=== PATIENT | male | born 1965 | race African-American/Black ===

== ENCOUNTER 2016-06-08 02:08 | Inpatient (IN) | payer OTHER ==
[~2016-06-08] VITALS: Ht 162.6 cm; Wt 71.9 kg
[2016-06-08] VITALS (16 sets, daily range): BP systolic 132–168; BP diastolic 81–110; PULSE 47–67; TEMP 36.3–37.2; O2SAT 95–100; Ht 162.6 cm; Wt 71.9 kg
[2016-06-08] MEDS ORDERED: NITROGLYCERIN OINT 2% 1GM PACKET EXT ONE (02:30)
--- NOTE | 2016-06-08 02:50 | EMERGENCY ROOM VISIT NOTE ---
History Report prepared by Saritaibant: Jeanine Hernandes Under the Supervision of: Dr. Melida Cook M.D. First contact with patient: 02:10 Chief Complaint: CHEST PAIN Stated Complaint: CHEST PAIN Nursing Triage Summary: Chest pain started at 2100. Came to medical at 0100 and transported here via ems. History of Present Illness The patient is a 50 year old male who presents to the Emergency Room with complaints of mid-chest pain starting about 5 hours ago. He has worsening pain with palpation. He also complains of some shortness of breath. He received aspirin and nitroglycerin with some relief. He denies fevers, chills, cough, nausea, vomiting, abdominal pain, or any other complaints. He does not have any medical problems. He denies any history of blood clots, heart attack, or stress test. He is a current smoker. Source of History: patient Onset: about 5 hours ago Position: chest (mid) Quality: other (palpation) Modifying Factors (Relieving): other (aspirin and nitroglycerin with some relief) Associated Symptoms: + SOB, No abdominal pain, No chills, No cough, No fevers, No nausea, No vomiting Review of Systems See HPI for pertinent positives & negatives. A total of 10 systems reviewed and were otherwise negative. Past Medical & Surgical Medical Problems: (1) No Known Active Medical Problems (2) NSTEMI, initial episode of care Family History Patient reports no known family medical history. Social History Smoking Status: Current Some Day Smoker Marital Status: single Housing Status: other (prisoner) Occupation Status: other (prisoner) Current/Historical Medications No Active Prescriptions or Reported Meds Allergies Coded Allergies: No Known Allergies (Unverified , 06/08/16) Physical Exam Vital Signs Date Time Temp Pulse Resp B/P Pulse Ox O2 Delivery O2 Flow Rate FiO2 06/08/16 02:19 47 06/08/16 02:17 100 Room Air 06/08/16 02:17 36.2 51 18 136/84 100 Room Air Physical Exam Vital signs reviewed. General: Well-appearing, in no significant distress. HEENT: No scleral icterus, PERRLA, neck supple. Atraumatic. Cardiovascular: Regular rate and rhythm, no extra sounds. Pulmonary: Clear to auscultation bilaterally, normal work of breathing. Abdomen: Soft, nontender, nondistended, positive bowel sounds. Musculoskeletal: Atraumatic, no peripheral edema. Neurologic: Patient awake alert and oriented x 3, full strength in all 4 extremities. Cranial nerves 2 through 12 grossly intact. Skin: Warm, dry, no rash Medical Decision & Procedures ER Provider Diagnostic Interpretation: X-ray results as stated below per interpretation by me: CHEST X-RAY Lucency around the right heart border which is thought to be soft tissue overlay right mainstem bronchus and aortic arch. Laboratory Results 06/08/16 02:51 Red Blood Count 4.66, Mean Corpuscular Volume 79.2, Mean Corpuscular Hemoglobin 26.4, Mean Corpuscular Hemoglobin Concent 33.3, Mean Platelet Volume 9.0, Neutrophils (%) (Auto) 77.2, Lymphocytes (%) (Auto) 17.5, Monocytes (%) (Auto) 3.6, Eosinophils (%) (Auto) 1.3, Basophils (%) (Auto) 0.2, Neutrophils # (Auto) 6.79, Lymphocytes # (Auto) 1.54, Monocytes # (Auto) 0.32, Eosinophils # (Auto) 0.11, Basophils # (Auto) 0.02 06/08/16 02:51 Test 06/08/16 02:51 White Blood Count 8.80 K/uL (4.8-10.8) Red Blood Count 4.66 M/uL (4.7-6.1) Hemoglobin 12.3 g/dL (14.0-18.0) Hematocrit 36.9 % (42-52) Mean Corpuscular Volume 79.2 fL (80-100) Mean Corpuscular Hemoglobin 26.4 pg (25-34) Mean Corpuscular Hemoglobin Concent 33.3 g/dl (32-36) Platelet Count 213 K/uL (130-400) Mean Platelet Volume 9.0 fL (7.4-10.4) Neutrophils (%) (Auto) 77.2 % Lymphocytes (%) (Auto) 17.5 % Monocytes (%) (Auto) 3.6 % Eosinophils (%) (Auto) 1.3 % Basophils (%) (Auto) 0.2 % Neutrophils # (Auto) 6.79 K/uL (1.4-6.5) Lymphocytes # (Auto) 1.54 K/uL (1.2-3.4) Monocytes # (Auto) 0.32 K/uL (0.11-0.59) Eosinophils # (Auto) 0.11 K/uL (0-0.5) Basophils # (Auto) 0.02 K/uL (0-0.2) RDW Standard Deviation 45.3 fL (36.4-46.3) RDW Coefficient of Variation 15.7 % (11.5-14.5) Immature Granulocyte % (Auto) 0.2 % Immature Granulocyte # (Auto) 0.02 K/uL (0.00-0.02) Prothrombin Time 10.2 SECONDS (9.0-12.0) Prothromb Time International Ratio 1.0 (0.9-1.1) Activated Partial Thromboplast Time 32.3 SECONDS (21.0-31.0) Partial Thromboplastin Ratio 1.2 Anion Gap 6.0 mmol/L (3-11) Est Creatinine Clear Calc Drug Dose 89.5 ml/min Estimated GFR () 110.7 Estimated GFR (Non- 95.5 BUN/Creatinine Ratio 12.7 (10-20) Calcium Level 8.2 mg/dl (8.5-10.1) Magnesium Level 2.2 mg/dl (1.8-2.4) Iron Level 54 mcg/dl (35-175) Total Iron Binding Capacity 261 mcg/dl (250-450) Total Bilirubin 0.3 mg/dl (0.2-1) Direct Bilirubin < 0.1 mg/dl (0-0.2) Aspartate Amino Transf (AST/SGOT) 35 U/L (15-37) Alanine Aminotransferase (ALT/SGPT) 36 U/L (12-78) Alkaline Phosphatase 108 U/L (45-117) Total Protein 7.0 gm/dl (6.4-8.2) Albumin 3.5 gm/dl (3.4-5.0) Laboratory results per my review. Medications Administered Medications (Trade) Dose Ordered Sig/Kevon Route Start Time Stop Time Status Last Admin Dose Admin Nitroglycerin (Nitroglycerin 2% Oint) 1 inch NOW ONCE EXT 06/08/16 02:30 06/08/16 02:31 DC 06/08/16 02:30 1 INCH Morphine Sulfate (MoRPHine SULFATE INJ) 4 mg NOW STAT IV 06/08/16 03:09 06/08/16 03:11 DC 06/08/16 03:15 4 MG Heparin Sodium/ Dextrose 1 ea NOW STAT N/A 06/08/16 04:02 06/08/16 04:03 DC 06/08/16 04:02 1 EA Heparin Sodium (Porcine) (Heparin Sq 5000 Unit/0.5ml) 5,000 unit STK-MED ONCE .ROUTE 06/08/16 04:31 06/08/16 04:32 DC 06/08/16 04:36 5,000 UNIT Heparin Sodium/ Dextrose (Heparin 25,000 Unit/500ml D5W) 25,000 unit STK-MED ONCE .ROUTE 06/08/16 04:32 06/08/16 04:33 DC 06/08/16 04:35 25,000 UNIT ECG Indication: chest pain Rate (beats per minute): 49 Rhythm: sinus bradycardia Findings: T-wave inversion (inferior and lateral leads) Comparison ECG Date: no prior available Change: Repeat EKG showed sinus bradycardia, 46 beats per minute, t wave inversions in inferior and lateral leads. ED Course 0210: Past medical records reviewed. The patient was evaluated in room B06. A complete history and physical examination was performed. 0230: Nitroglycerin 1 inch EXT 0309: Morphine Sulfate 4 mg IV 0402: Heparin Sodium/Dextrose 1 ea N/A 0450: Upon reevaluation, the patient is resting comfortably. I discussed laboratory and radiographic results with the patient. He verbalized agreement of the treatment plan. I spoke with Dr. Higginbotham of the [facility] Hospitalist Service. The patient will be evaluated for further management and care. Medical Decision DDx: Acute coronary syndrome, pulmonary embolus, aortic dissection, musculoskeletal pain, pneumonia, pleural effusion, pneumothorax This pt was evaluated and appeared to be in no distress. IV access was obtained and lab work was drawn. Pt was placed on the quality assurance monitor body. EKG reveals T wave inferior, anterior and lateral leads. Troponin is elevated at 1.29. CXR is clear. 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 NTG paste was applied, pt was given IV morphine and heparin gtt was started. Repeat EKG reveals ST abnormality with T-wave inversion in the lateral leads, no ST elevation. The hospitalist service was contacted, Dr. Hernandez who evaluated the patient for admission and further management. The patient is aware of the plan and agrees. Consults Time Called: 0639 Consulting Physician: Dr. Higginbotham of the [facility] Hospitalist Service Returned Call: [address] [facility] Impression Primary Impression: Non-STEMI (non-ST elevated myocardial infarction) Critical Care I have personally spent greater than 30 minutes of critical care time in the direct management of this patient. This includes bedside care, interpretation of diagnostic studies, and testing, discussion with consultants, patient, and family members, and other required patient management activities. This 30 minutes is in excess of all separately billable procedures. Scribe Attestation The scribe's documentation has been prepared under my direction and personally reviewed by me in its entirety. I confirm that the note above accurately reflects all work, treatment, procedures, and medical decision making performed by me. Departure Information Dispostion Being Evaluated By Hospitalist Prescriptions No Active Prescriptions or Reported Meds Patient Instructions [facility]
[2016-06-08 02:59] LABS: BASO % 0.2 %; BASO ABS # 0.02 K/uL (0-0.2); COMPLETE YES; EOS % 1.3 %; HEMATOCRIT 36.9 % (42-52); IG% 0.2 %; LYMPH % 17.5 %; LYMPH ABS # 1.54 K/uL (1.2-3.4); MEAN CELL VOLUME 79.2 fL (80-100); MEAN CORPUSCULAR HEMOGLOBIN 26.4 pg (25-34); MEAN CORPUSCULAR HGB CONC 33.3 g/dl (32-36); MONO % 3.6 %; NEUT % 77.2 %; PLATELET COUNT 213 K/uL (130-400); RED BLOOD COUNT 4.66 M/uL (4.7-6.1)
[2016-06-08 03:08] LABS: PARTIAL THROMBOPLASTIN RATIO 1.2; PROTHROMBIN TIME (PATIENT) 10.2 SECONDS (9.0-12.0)
[2016-06-08] MEDS ORDERED: MoRPHine SULFATE 4 MG/ML 1 ML CARP\\VIAL IV STA (03:09)
[2016-06-08 03:22] LABS: ALT/SGPT 36 U/L (12-78); AST/SGOT 35 U/L (15-37); BLOOD UREA NITROGEN 12 mg/dl (7-18); BUN/CREATININE RATIO 12.7 (10-20); CALCIUM 8.2 mg/dl (8.5-10.1); CARBON DIOXIDE 30 mmol/L (21-32); CHLORIDE 108 mmol/L (98-107); CREATININE 0.94 mg/dl (0.60-1.40); GLUCOSE 117 mg/dl (70-99); MAGNESIUM 2.2 mg/dl (1.8-2.4); POTASSIUM 3.4 mmol/L (3.5-5.1); SODIUM 144 mmol/L (136-145)
[2016-06-08 03:30] LABS: ALKALINE PHOSPHATASE 108 U/L (45-117); CKMB/CK RATIO 9.3 (0-3.0)
[2016-06-08] MEDS ORDERED: HEPARIN SOD 5000 UNIT/0.5 ML CARP ONE (04:31)
[2016-06-08] MEDS ORDERED: HEPARIN 25000 UNIT/500 ML D5W ONE (04:32)
[2016-06-08] MEDS ORDERED: ONDANSETRON INJ 2 MG/ML 2 ML VIAL IV PRN ×2 (05:00→12:15)
[2016-06-08] MEDS ORDERED: ZOLPIDEM TARTRATE 5 MG TAB PO PRN (05:00)
[2016-06-08] MEDS ORDERED: HEPARIN 25,000 UNIT/500ML D5W 500 ML IV PRN (05:00)
[2016-06-08] MEDS ORDERED: NITROGLYCERIN 0.4 MG SL PER TAB CHARGE SL PRN ×2 (05:00→12:15)
[2016-06-08] MEDS ORDERED: MoRPHine SULFATE 2 MG/ML CARP IV PRN (05:00)
[2016-06-08] MEDS ORDERED: ACETAMINOPHEN 325 MG TAB PO PRN ×2 (05:00→12:15)
[2016-06-08 05:52] LABS: CKMB/CK RATIO 9.8 (0-3.0)
--- NOTE | 2016-06-08 06:02 | History and Physical ---
History & Physical Date & Time of Service: Jun 08, 2016 at 05:51 Chief Complaint: Nstemi, Initial Episode Of Care Primary Care Physician: Jimy DIMAS History of Present Illness Source: patient The patient is a 42-year-old male resident of [facility] [place], who presents emergency department with chest pain and shortness of breath that began about 5 hours prior to arrival. He did receive 4 baby aspirin and nitroglycerin sublingual with some relief, and then was brought to the emergency department for assessment. He is a current smoker. He is not on any routine medications. Family History Patient reports no known family medical history. Social History Smoking Status: Current Some Day Smoker Smokeless Tobacco Use: No Alcohol Use: none Drug Use: none Marital Status: single Occupational Status: other (prisoner) Multi-Drug Resistant Organisms History of MDRO: No Allergies Coded Allergies: No Known Allergies (Unverified , 06/08/16) Home Medications No Active Prescriptions or Reported Meds Review of Systems The patient denies palpitations, cough, lower extremity swelling, vision change , hearing change, sore throat, fevers, chills, sweats, weight change, fatigue, nausea, vomiting, abdominal pain, pelvic pain, blood in urine or stool, dysuria , urinary frequency or urgency, lightheadedness, dizziness, headache, memory loss, rash, abnormal bruising or bleeding, imbalance, focal or generalized weakness, numbness or tingling in arms or legs, arthralgias or myalgias, back or neck pain, night sweats, or allergy symptoms. The review of systems is otherwise negative other than for that already noted above, and at least 10 systems have been reviewed. Physical Exam Vital Signs Date Time Temp Pulse Resp B/P Pulse Ox O2 Delivery O2 Flow Rate FiO2 06/08/16 05:30 36.2 47 18 136/84 100 06/08/16 02:19 47 06/08/16 02:17 100 Room Air 06/08/16 02:17 36.2 51 18 136/84 100 Room Air The patient is awake, well-developed and adequately nourished, alert and oriented 3, normocephalic and atraumatic, lying in bed and in no acute distress. HEENT--PERRL, EOMI, mucous membranes and oropharynx dry. Neck--supple, no JVD or bruits, thyroid normal, trachea midline, no adenopathy. Heart--normal S1 and S2, no extra beats, no murmurs, rubs or gallops. Lungs--clear bilaterally, no respiratory distress, no accessory muscle use. Abdomen--normal bowel sounds and soft, nontender and nondistended, no hernias or masses, no organomegaly. Extremities--no cyanosis, clubbing or edema. There are good distal pulses b/l. Dermatologic--normal skin turgor, normal color, warm and dry, no abnormal lymph nodes, no rash. Neurologic--cranial nerves II through XII grossly intact, motor and sensory examination normal. Rheumatologic--normal range of motion, nontender, muscles and joints. Psychiatric--normal affect. Diagnostics Laboratory Results Results Past 24 Hours Test 06/08/16 02:51 06/08/16 04:51 06/08/16 05:13 Range/Units White Blood Count 8.80 4.8-10.8 K/uL Red Blood Count 4.66 4.7-6.1 M/uL Hemoglobin 12.3 14.0-18.0 g/dL Hematocrit 36.9 42-52 % Mean Corpuscular Volume 79.2 80-100 fL Mean Corpuscular Hemoglobin 26.4 25-34 pg Mean Corpuscular Hemoglobin Concent 33.3 32-36 g/dl Platelet Count 213 130-400 K/uL Mean Platelet Volume 9.0 7.4-10.4 fL Neutrophils (%) (Auto) 77.2 % Lymphocytes (%) (Auto) 17.5 % Monocytes (%) (Auto) 3.6 % Eosinophils (%) (Auto) 1.3 % Basophils (%) (Auto) 0.2 % Neutrophils # (Auto) 6.79 1.4-6.5 K/uL Lymphocytes # (Auto) 1.54 1.2-3.4 K/uL Monocytes # (Auto) 0.32 0.11-0.59 K/uL Eosinophils # (Auto) 0.11 0-0.5 K/uL Basophils # (Auto) 0.02 0-0.2 K/uL RDW Standard Deviation 45.3 36.4-46.3 fL RDW Coefficient of Variation 15.7 11.5-14.5 % Immature Granulocyte % (Auto) 0.2 % Immature Granulocyte # (Auto) 0.02 0.00-0.02 K/uL Prothrombin Time 10.2 9.0-12.0 SECONDS Prothromb Time International Ratio 1.0 0.9-1.1 Activated Partial Thromboplast Time 32.3 21.0-31.0 SECONDS Partial Thromboplastin Ratio 1.2 Sodium Level 144 136-145 mmol/L Potassium Level 3.4 3.5-5.1 mmol/L Chloride Level 108 98-107 mmol/L Carbon Dioxide Level 30 21-32 mmol/L Anion Gap 6.0 3-11 mmol/L Blood Urea Nitrogen 12 7-18 mg/dl Creatinine 0.94 0.60-1.40 mg/dl Est Creatinine Clear Calc Drug Dose 89.5 ml/min Estimated GFR () 110.7 Estimated GFR (Non- 95.5 BUN/Creatinine Ratio 12.7 10-20 Random Glucose 117 70-99 mg/dl Calcium Level 8.2 8.5-10.1 mg/dl Magnesium Level 2.2 1.8-2.4 mg/dl Total Bilirubin 0.3 0.2-1 mg/dl Direct Bilirubin < 0.1 0-0.2 mg/dl Aspartate Amino Transf (AST/SGOT) 35 15-37 U/L Alanine Aminotransferase (ALT/SGPT) 36 12-78 U/L Alkaline Phosphatase 108 45-117 U/L Total Creatine Kinase 241 39-308 U/L Creatine Kinase MB 22.5 0.5-3.6 ng/ml Creatine Kinase MB Ratio 9.3 0-3.0 Troponin I 1.290 0-0.045 ng/ml Total Protein 7.0 6.4-8.2 gm/dl Albumin 3.5 3.4-5.0 gm/dl Diagnostic Radiology Chest x-ray is normal. EKG EKG #1 shows sinus bradycardia at 49 bpm, with inferior and anterolateral ischemic changes. EKG #2 shows sinus bradycardia at 46 bpm, with inferior and anterolateral ischemic changes. Impression Assessment and Plan NSTEMI, with troponin 1.290, and successive EKGs showing inferior and anterolateral ischemia--the patient will be admitted to the telemetry unit for serial cardiac enzymes, cardiac rhythm monitoring and a 2-D echocardiogram with Dopplers. We'll continue the heparin drip standard dose with bolus per protocol started in the emergency department, and Nitropaste 1 inch to the anterior chest wall every 6 hours, normal saline with KCl 20 mEq at 100 ML's per hour, and aspirin 81 mg by mouth every morning. The patient will be placed on a cardiac diet, will have a cardiology consult, and will likely need a cardiac catheterization. Hyperglycemia--blood sugar 117 upon admission, will check a hemoglobin A1c. Hypokalemia--replaced with IV fluids as noted above. Anemia--hemoglobin is 12.3 upon admission. We'll check iron studies and perform Hemoccults. Level of Care Telemetry Advanced Directives Existing Advance Directive: No Existing Living Will: No Existing Power of Guest Services Attendant: No Resuscitation Status FULL RESUSCITATION VTE Prophylaxis VTE Risk Assessment Done? Y/N: Yes Risk Level: High Given or contraindicated: Unfractionated heparin SQ
[2016-06-08] MEDS: NSS + 20MEQ KCL 1000ML 1,000 ML IV SCH ×2 (06:13→15:32)
[2016-06-08 07:07] LABS: TOTAL IRON BINDING CAPACITY 261 mcg/dl (250-450)
--- NOTE | 2016-06-08 07:40 | DIAGNOSTIC IMAGING REPORT ---
CHEST ONE VIEW PORTABLE CLINICAL HISTORY: chest pain pain COMPARISON STUDY: No previous studies for comparison. FINDINGS: The bones soft tissues and hemidiaphragms are normal. The cardiomediastinal silhouette is normal. The lungs are clear. The pulmonary vasculature is normal. IMPRESSION: Negative chest. Electronically signed by: Abdelrahman Johnson M.D. 06/08/2016 7:38 AM Dictated Date/Time: 06/08/2016 7:35 AM
[2016-06-08 07:48] LABS: ESTIMATED AVERAGE GLUCOSE 123 mg/dl; HA1C FLAG Normal (Normal)
[2016-06-08] MEDS ORDERED: NITROGLYCERIN OINT 2% 1GM PACKET EXT SCH (08:00)
[2016-06-08] MEDS: ASPIRIN 81 MG ECTAB PO SCH (08:13)
[2016-06-08] MEDS ORDERED: ATORVASTATIN 40 MG TAB PO SCH (09:00)
--- NOTE | 2016-06-08 09:06 | ECHOCARDIOGRAM REPORT ---
*NOTICE TO RECEIVING LIBERTARIAN AGENCY This information is strictly Confidential and protected under [place] law. [place] law prohibits you from making any further disclosure of this information unless further disclosure is expressly permitted by the written consent of the person to whom it pertains or is authorized by law. A general authorization for the release of medical or other information is not sufficient for this purpose. Hospital accepts no responsibility if the information is made available to any other person, INCLUDING THE PATIENT. Interpretation Summary * Name: NELIDA CANCHOLA [id number] Study Date: 06/08/2016 07:07 AM BP: 134/83 mmHg * Patient Location: [facility] HR: 47 * : 1965 (M/d/yyyy) Gender: Male Height: 64 in * Age: 50 yrs Ethnicity: AA Weight: 167 lb * Ordering Physician: YESENIA MARADIAGA MD * Performed By: Raina Hsu RCS * * Reason For Study: NSTEMI * BSA: 1.8 m2 * -- Conclusions -- * 1. Normal left ventricular size and systolic function. EF 55-60%. Akinesis of the inferior base. Moderate to severe concentric left ventricular hypertrophy. No significant diastolic dysfunction. * 2. The left atrium is mildly dilated. * 3. No significant valvular abnormalities visualized. * 4. No prior study available for comparison. Procedure Details * A complete two-dimensional transthoracic echocardiogram was performed (2D, M-mode, Doppler and color flow Doppler). Left Ventricle * Normal left ventricular size and systolic function. EF 55-60%. Akinesis of the inferior base. Moderate to severe concentric left ventricular hypertrophy. No significant diastolic dysfunction. Right Ventricle * The right ventricle is normal in size and function. * The right ventricular systolic function is normal as assessed by tricuspid annular plane systolic excursion (TAPSE) (normal >1.5 cm). Atria * The left atrium is mildly dilated. * Right atrial size is normal. * There is no evidence of atrial septal defect, but resolution does not allow assessment for a patent foramen ovale. Mitral Valve * The mitral valve leaflets appear thickened, but open well. * There is no mitral valve stenosis. * There is trace mitral regurgitation. Tricuspid Valve * The tricuspid valve is not well visualized, but is grossly normal. * There is no tricuspid stenosis. * There is trace tricuspid regurgitation. Aortic Valve * The aortic valve is trileaflet. * No hemodynamically significant valvular aortic stenosis. * No aortic regurgitation is present. Pulmonic Valve * The pulmonary valve is inadequately visualized, but the Doppler data is adequate for interpretation. * There is no pulmonic valvular stenosis. * There is no significant pulmonary regurgitation. Great Vessels * The aortic root is normal size. * Ascending aorta of normal dimension Pericardium/Pleural * There is no pericardial effusion. Great Vessels * Normal inferior vena cava size and collapsability with sniff indicates a normal right atrial pressure of 3 mmHg MMode 2D Measurements and Calculations IVSd 1.6 cm IVSs 2.0 cm LVIDd 4.7 cm LVIDs 3.2 cm LVPWd 1.5 cm LVPWs 1.8 cm IVS/LVPW 1.1 FS 32.2 % EDV(Teich) 100.8 ml ESV(Teich) 39.9 ml EF(Teich) 60.4 % EDV(cubed) 101.8 ml ESV(cubed) 31.7 ml EF(cubed) 68.8 % % IVS thick 26.9 % % LVPW thick 24.4 % LV mass(C)d 297.9 grams LV mass(C)dI 164.4 grams/m\S\2 LV mass(C)s 258.8 grams LV mass(C)sI 142.8 grams/m\S\2 SV(Teich) 60.9 ml SI(Teich) 33.6 ml/m\S\2 SV(cubed) 70.1 ml SI(cubed) 38.7 ml/m\S\2 Ao root diam 3.4 cm Ao root area 9.3 cm\S\2 ACS 2.3 cm LA dimension 2.8 cm asc Aorta Diam 3.0 cm LA/Ao 0.80 LVOT diam 2.0 cm LVOT area 3.2 cm\S\2 LVAd ap4 33.3 cm\S\2 LVLd ap4 8.0 cm EDV(MOD-sp4) 111.2 ml EDV(sp4-el) 117.3 ml LVAs ap4 20.8 cm\S\2 LVLs ap4 7.1 cm ESV(MOD-sp4) 54.9 ml ESV(sp4-el) 52.2 ml EF(MOD-sp4) 50.6 % EF(sp4-el) 55.5 % SV(MOD-sp4) 56.2 ml SI(MOD-sp4) 31.0 ml/m\S\2 SV(sp4-el) 65.0 ml SI(sp4-el) 35.9 ml/m\S\2 Doppler Measurements and Calculations MV E max jo 65.0 cm/sec MV A max jo 41.7 cm/sec MV E/A 1.6 MV P1/2t max jo 80.8 cm/sec MV P1/2t 67.6 msec MVA(P1/2t) 3.3 cm\S\2 MV dec slope 349.8 cm/sec\S\2 MV dec time 0.23 sec Ao V2 max 145.3 cm/sec Ao max PG 8.5 mmHg Ao max PG (full) 4.6 mmHg ISAIAH(V,A) 2.1 cm\S\2 ISAIAH(V,D) 2.1 cm\S\2 LV V1 max PG 3.8 mmHg LV V1 max 98.0 cm/sec TV E max jo 57.2 cm/sec
[2016-06-08 09:22] LABS: CHOLESTEROL/HDL RATIO 2.8; THYROID STIMULATING HORMONE 0.971 uIu/ml (0.300-4.500)
[2016-06-08] MEDS ORDERED: NiCARDipine HCL INJ 2.5 MG/ML 10 ML AMP ONE (09:44)
[2016-06-08] MEDS ORDERED: MIDAZOLAM HCL 1 MG/ML 2ML VIAL ONE (09:45)
[2016-06-08] MEDS ORDERED: FENTANYL CITRATE INJ 50 MCG/1 ML 2 ML VIAL ONE (09:45)
[2016-06-08] MEDS ORDERED: HEPARIN SOD (PORCINE) 1000 UNIT/ML 10 ML VIAL ONE (09:45)
--- NOTE | 2016-06-08 09:45 | Procedure Note ---
Pre-Mod Sedation Assessment General Date of Moderate Sedation: Jun 08, 2016. Vital Signs: Vital Signs Past 12 Hours Date Time Temp Pulse Resp B/P Pulse Ox O2 Delivery O2 Flow Rate FiO2 06/08/16 09:23 47 18 134/83 Room Air 06/08/16 08:00 Room Air 06/08/16 07:43 36.5 47 18 134/83 95 Room Air 06/08/16 05:30 36.2 47 18 136/84 100 06/08/16 05:20 36.4 55 18 161/81 95 Room Air 06/08/16 02:19 47 06/08/16 02:17 100 Room Air 06/08/16 02:17 36.2 51 18 136/84 100 Room Air Review Cardiovascular: regular rate, rhythm, no murmur Abdomen: soft Lungs: lungs clear Pre-Sedation Airway Assessment Oral Cavity: WNL Short Thick Neck: No Hx of Sleep Apnea: No Smoking Status: Current Every Day Smoker Procedure Planning Contraindications-for Mod Sed: None Yes Notes The planned sedation has been discussed with the patient and consent obtained. I have identified the patient, determined the appropriateness of sedation and have assessed the patient immediately prior to the procedure. All medicine(s) and interventions are by my order.
[2016-06-08] MEDS ORDERED: NITROGLYCERIN/D5W 100MCG/ML 20ML SYR ONE (09:46)
--- NOTE | 2016-06-08 10:39 | CARDIOLOGY CONSULTATION ---
DATE OF CONSULTATION: 06/08/2016 TIME: 9:59 a.m. CONSULTING PHYSICIAN: Dr. Higginbotham. REASON FOR CONSULTATION: Non-ST elevation myocardial infarction. HISTORY OF PRESENT ILLNESS: Mr. Worthy is a 50-year-old gentleman who resides at [facility] with no known past medical history. He is a long-term tobacco smoker, however. Last evening at approximately 2100, he developed substernal chest discomfort that radiated to his neck and head. It was accompanied by shortness of breath but no diaphoresis. This occurred while sitting in his bunk. He was told to eat crackers and drink some water. This caused nausea but no vomiting. His symptoms persisted. He then came to the Emergency Department for further evaluation. He received nitroglycerin with some improvement of his symptoms, but he has continued to have a very mild chest discomfort, rated 1/10. He states that the chest discomfort is more of a tightness. He has never experienced these symptoms before but did have some shortness of breath a few years ago but none recently. He typically exercises by walking around the yard and has no exertional chest discomfort or shortness of breath with those activities. He denies melena, hematochezia, hematuria, or other bleeding. He does have some intermittent abdominal discomfort but no vomiting. He denies fevers, chills, stroke or stroke-like symptoms, syncope, near syncope, palpitations, orthopnea or PND. REVIEW OF SYSTEMS: As above and otherwise negative. PAST MEDICAL HISTORY: No known past medical history. HOME MEDICATIONS: None. INPATIENT MEDICATIONS: Include heparin drip per protocol, aspirin 81 mg daily, Lipitor 40 mg daily, nitroglycerin 2% ointment 1 inch q. 6 hours, normal saline with potassium chloride 100 mL per hour. ALLERGIES: No known drug allergies. SOCIAL HISTORY: Has smoked up to a pack per day but is now currently smoking less than a pack per day. He denies alcohol or drugs. He did, however, bring up the topic that perhaps something was slipped into his food. He was okay with a tox screen. He is technically but said he will be going through a divorce at some point in the future. When asked how many children he has, he says "quite a few." He is accompanied by network security engineer from [facility]. FAMILY HISTORY: No known premature CAD. PHYSICAL EXAMINATION: VITAL SIGNS: Temperature 36.5 degrees, heart rate 47 beats per minute, respiration rate 18, blood pressure 134/83 mmHg, oxygen saturation 95% on room air, weight 77.2 kg. GENERAL: No acute distress. He is alert and oriented x3. HEENT: Anicteric sclerae. NECK: No appreciable JVD. No bruits. Normal carotid upstrokes bilaterally. There does appear to be a possible lymphadenopathy on the left side of his neck versus thyroid finding. CARDIAC: No ventricular heave. Regular, normal S1, S2. No murmurs, rubs or gallops were auscultated. PMI was nondisplaced. LUNGS: Faint rales in bibasilar areas, otherwise clear. ABDOMEN: Soft, nondistended, mild tenderness in the epigastric area. No bruits. No palpable masses. Normoactive bowel sounds. EXTREMITIES: No cyanosis or edema. No palpable cords. 2+ radial pulses bilaterally. Maverick's test okay. 2+ femoral pulses bilaterally. No bruits. PSYCHIATRIC: Affect appears appropriate. ECG personally reviewed. ECG 06/08/2016 at 2:10 a.m., sinus bradycardia at [address]-T wave abnormality in the inferior and anterolateral leads. Repeat ECG performed at 3:38 a.m. without significant change. Possible inferior infarct. Echocardiogram performed earlier today personally reviewed. Normal LV size and systolic function. EF 55-60%. Inferior base appeared akinetic. Moderate to severe LVH. Mild left atrial dilation. No significant valvular abnormalities. LABORATORY DATA: White blood cell count is 8.8, hemoglobin 12.3, platelets 213. Sodium 144, potassium 3.8, BUN 12, creatinine 0.94, magnesium 2.2. Troponin 1.29 initially and increased to 2.43. CK-MB 36.1. Triglycerides 72, total cholesterol 166, LDL 93, HDL 59. TSH 0.971. INR 1, PTT 32.3. Chest x-ray image personally reviewed. No infiltrate. Radiology has interpreted the chest x-ray as "negative chest." ASSESSMENT AND PLAN: 1. Acute non-ST elevation myocardial infarction: He continues to have very mild chest discomfort despite nitroglycerin ointment and receiving nitroglycerin sublingual tablets. Recommend a cardiac catheterization. Risks and benefits were discussed with him. He is made aware that CT surgery is not available at this facility. He has given informed written consent to undergo diagnostic angiography and percutaneous coronary intervention, if deemed appropriate, at [facility]. Continue antiplatelet therapy and high intensity statin therapy for presumed coronary artery disease. He is not on beta devika therapy due to resting bradycardia. 2. Tobacco abuse: Recommended that he stop smoking. 3. Tox screen: He asked if something could have been slipped into his food. We discussed tox screen and he was agreeable to undergo tox screen which will be ordered at this time. He denies personal use of cocaine or other illicit substance at this time, however. 4. Disposition: Cardiac catheterization will be performed urgently given his ongoing symptoms, albeit much improved. 5. Highly complex medical issues. Thank you for allowing me to participate in the care of Mr. Worthy.
--- NOTE | 2016-06-08 11:16 | Progress Note ---
Progress Note Date of Service Jun 08, 2016. (Coco Rose ., PA-C) Progress Note Patient seen and examined by me. Still c/o central chest pressure which he rates a 1/10. Also c/o some epigastric pain that has been intermittent. The patient denies fevers, chills, sweats, palpitations, claudication, cough, wheezing, shortness of breath, nausea, vomiting, dysuria, hematuria, urinary retention, paralysis, weakness, numbness and tingling. On physical exam, patient in sinus bradycardia. Epigastric area and upper quadrants of abdomen mildly TTP. Physical exam otherwise unremarkable. Patient has remained in sinus bradycardia overnight with HR in 40s. Patient did have 2 short runs of v-tach (4 beats) overnight. Troponin continues to rise : 1.29 -->2.43. Lipid panel and HgbA1c WNL. Slightly hypokalemic on arrival at 3.4, continue IVF NSS + 20 mEq KCl at 100 cc/hr Echocardiogram results: * -- Conclusions -- * 1. Normal left ventricular size and systolic function. EF 55-60%. Akinesis of the inferior base. Moderate to severe concentric left ventricular hypertrophy. No significant diastolic dysfunction. * 2. The left atrium is mildly dilated. * 3. No significant valvular abnormalities visualized. * 4. No prior study available for comparison. Seen by Dr. Garcia, patient taken for urgent cardiac cath. Continue antiplatelet therapy and statin. Patient is bradycardic. No beta devika therapy. Continue aspirin, nitroglycerin and heparin drip. Awaiting cath results. (Coco Rose ., PA-C) I agree with PA assessment and plan Pt to undergo cardiac cath Tops trending upwards Ischemic changes on EKG Mild chest pain this AM Hemodynamically stable Appreciate cardiology recs (Ashok Cantrell D.O.)
--- NOTE | 2016-06-08 11:25 | Procedure Note ---
Post-Mod Sedation Assessment General Date of Moderate Sedation Jun 08, 2016. Vital Signs: Vital Signs Past 12 Hours Date Time Temp Pulse Resp B/P Pulse Ox O2 Delivery O2 Flow Rate FiO2 06/08/16 09:23 47 18 134/83 Room Air 06/08/16 08:00 Room Air 06/08/16 07:43 36.5 47 18 134/83 95 Room Air 06/08/16 05:30 36.2 47 18 136/84 100 06/08/16 05:20 36.4 55 18 161/81 95 Room Air 06/08/16 02:19 47 06/08/16 02:17 100 Room Air 06/08/16 02:17 36.2 51 18 136/84 100 Room Air Review - Discharge Criteria Vital Signs Stable: Yes Alert/Oriented/Conversant: Yes Returned to Baseline Mental St: Yes Nausea Absent/Minimal: Yes Pain/Discomfort/Absent/Minimal: Yes Normal/Baseline Respirations: Yes Active Bleeding?: No
[2016-06-08] MEDS ORDERED: EPTIFIBATIDE 2 MG/ML 10 ML VIAL IV ONE (11:38)
[2016-06-08] MEDS ORDERED: EPTIFIBATIDE 0.75 MG/ML 75MG VIAL IV ONE (11:38)
--- NOTE | 2016-06-08 11:57 | Cardiac Catheterization ---
Procedure Note Procedure Date Jun 08, 2016. Pre-Procedure Diagnosis Non STEMI (with ongoing angina despite nitrate therapy) AUC Score 8 Post-Procedure Diagnosis Severe CAD Procedure(s) Performed Coronary Angiography, Left Heart Cath Manager Commercial Dr. Garcia Stocking Inspector(s) Marysol Estimated Blood Loss < 25 ml Medication(s) Fentanyl, Heparin, Nicardipine, Versed, Lidocaine 1% Summary of Findings Coronary angiography: 1. Left main coronary artery: The LMCA is large in caliber without angiographic evidence of CAD. 2. Left anterior descending: The LAD is very large in caliber and wraps around the apex. Proximal LAD 30-40%, just proximal to large septal auto parts handler. Luminal irregularities in the mid LAD. There is a small caliber D1 and medium caliber D2 without angiographic evidence of CAD. 3. Circumflex: The circumflex is a large caliber vessel. It gives rise to a high OM1. Proximal circumflex 30%. Mid circumflex lawn diffusely diseased segment ranging 50-70% with sequential 70% lesions within this segment. SHAYNA 3 flow. Very large caliber OM1 with proximal 70% followed by sequential 50% stenosis. 4. Ramus intermedius: Large caliber ramus intermedius with proximal 30% stenosis. 5. 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 Dominant RCA. Proximal RCA 30%. Mid to distal RCA 100% occlusion. SHAYNA 0 flow. Left heart catheterization: 1. Left ventriculography was not performed due to echocardiogram performed earlier today. 2. No aortic stenosis. Peak to peak gradient across the aortic valve was 0 mmHg. 3. Mildly elevated LVEDP; 17 mmHg. Aortography: 1. Supravalvular aortography was performed to help locate the right coronary artery origin. There was no aortic regurgitation. No aortic aneurysm. No evidence of ascending aortic dissection. Sedation start time 10:13 a.m. Sedation end time 11:08 a.m. Procedural details: 1. Coronary angiography was performed via the right radial artery without known complication. 2. AR2 6 Persian diagnostic catheter was used to sub selectively engage anomalous right coronary artery. Impression: 1. 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 2. Severe CAD involving the circumflex and very large caliber OM1. Otherwise nonobstructive CAD within the LAD and ramus intermedius. 3. No aortic stenosis or aortic regurgitation. 4. Mildly elevated LVEDP. Plan: 1. Interventional Cardiology, Dr. Gutierres, to attempt PCI of occluded RCA as patient has continued to experience angina, despite nitrate therapy. Hemodynamics Rest Ao: 127/72 Final Ao: 129/82 LV: 133/7/17 Recommendations PCI without planned CABG Specimens None Radiation Exposure (mGy) 1885 mGy. Fluoro time 14.3 min. Contrast (mls) 157 ml visipaque Procedural Complication(s) None Disposition remained in director of cath lab for attempted PCI ACC Data Cardiac Status Clinical evaluation leading to the procedure CAD Presntation: Non STEMI Anginal Classification: CCS IV Heart Failure: No Cardiogenic Shock w/in 24Hrs: No Cardiac Arrest w/in 24Hrs: No Imaging studies past 6 months: Yes (echo) Stress studies past 6 months: No Standard Exercise Stress Test: No Stress Echocardiogram: No Stress Testing w/SPECT MPI: No Cardiac CTA: No Coronary Anatomy Dominant: Right Left Main (% Stenosis): Normal LAD (% Stenosis): Proximal (30%) D1 (% Stenosis): Normal Circumflex (% Stenosis): Proximal (30%), Mid (sequential 70% lesions) OM1 (% Stenosis): Proximal (sequential 70% and 50% stenotic lesions.) RCA (% Stenosis): Proximal (30%), Mid (mid to distal 100%) Ramus (% Stenosis): Proximal (30%) Left Ventricular Angiography EF (%): n/a Aortography Aortic Regurgitation: None Diagnostic Physician's Name: Wander Garcia MD Status: Elective Closure Device Percutaneous Entry Location: Radial Closure Device: Radial Band Recommendations: PCI without planned CABG PCI Indication: Angina despite med therapy
[2016-06-08] MEDS ORDERED: EPTIFIBATIDE BOLUS / DRIP IV ONE (12:15)
[2016-06-08] MEDS ORDERED: ATROPINE SULFATE 0.1 MG/ML 5ML SYR IV PRN (12:15)
[2016-06-08] MEDS ORDERED: CLOPIDOGREL BISULFATE 300 MG TAB PO ONE (12:16)
--- NOTE | 2016-06-08 13:09 | Cardiac Catheterization ---
Procedure Note Procedure Date Jun 08, 2016. Pre-Procedure Diagnosis Non STEMI, Acute Coronary Syndrome AUC Score 9 Post-Procedure Diagnosis Severe CAD, Successful PCI Procedure(s) Performed Coronary Angiography, PTCA, Drug Eluting Stent Qlikview Developer Dr. Gutierres Hvac Mechanical Engineer(s) JAIR Wills Estimated Blood Loss 20 ml for PCI procedure Medication(s) Clopidogrel (600 mg PO post PCI), Heparin, Integrilin, Nicardipine ( Intraarterial and intracoronary), Versed, Lidocaine 1% Summary of Findings Cath site: 6 Fr [facility] right radial artery Equipment: 6 Fr ALR1-2 guide catheter, [place] guidewire, [employer] Sprinter 2 X 15 mm balloon , Ferguson Xience 2.25 X 18 mm MARLYN. PCI protocol: IV heparin and Integrilin to achieve therapeutic ACT. One inflation with Sprinter to distal RCA occlusion to 14 atms for 15 seconds. Stent deployed at 18 atms for 45 sec. Follow up angiography from orthogonal projections with guidewire in place and then withdrawn. Complications: none. Findings: Initial diagnostic RCA angiography revealed total distal occlusion at crux. SHAYNA 0 flow. After guide angiography flow into the distal RCA was extended for an additional few cm. After PTCA to distal RCA SHAYNA 2 flow into PDA. After stent deployment the residual stenosis at the stent site was 0%. Step up and step down prior to and distal to stent respectively. No dissection, thrombus,perforation, or distal embolic event. SHAYNA 3 flow into remainder of the codominant RCA and a small caliber PDA. After the stent there was a residual 30% stenosis. Distal RCA gave rise to a small caliber PDA with minor irregularities Plan: Aspirin,clopidogrel for at least one year. Aspirin indefinitely. Statin, RODRIGUEZ inhibitor. Beta devika currently contraindicated secondary to intrinsic bradycardia. IV Integrilin for 18 hrs. Smoking cessation counseling. Hemodynamics Rest Ao: 129/82/101 mm Hg. Final Ao: 152/92/82 mm Hg. LV: NA Recommendations Medical therapy and/or Counseling, PCI without planned CABG Specimens None Radiation Exposure (mGy) [place] 3662 for both diagnostic and PCI procedures. Contrast (mls) Total of 297 ml Visipaque for both procedures. Fluids (cc crystalloids) Total of 200 ml for both procedures. Drains none. Anesthesia None addtional for PCI. Procedural Complication(s) None Disposition PCU ACC Data Cardiac Status Clinical evaluation leading to the procedure CAD Presntation: Non STEMI Anginal Classification: CCS IV Heart Failure: No Cardiogenic Shock w/in 24Hrs: No Cardiac Arrest w/in 24Hrs: No Stress studies past 6 months: Yes Standard Exercise Stress Test: No Stress Echocardiogram: No Stress Testing w/SPECT MPI: No Cardiac CTA: No Coronary Anatomy Dominant: Co-dominant (See Dr. Garcia's diagnostic report for complete details.) RCA (% Stenosis): Distal (100) Left Ventricular Angiography EF (%): NA Diagnostic Physician's Name: Wander Garcia MD Status: Urgent Closure Device Percutaneous Entry Location: Radial Closure Device: Radial Band Recommendations: None PCI Indication: PCI for high risk Non-STEMI Lesion Segment Name: Distal RCA Culprit Artery: Yes Stenosis Prior to Rx (%): 100 Chronic Total Occlusion: No IVUS: No FFR: No Pre-Procedure SHAYNA Flow: 0 Previously Treated Lesion: No Lesion Complexity: Non-High/Non-C Lesion Length (mm): 15 Thrombus Present: Yes Bifurcation Lesion: No Guidewire Across Lesion: Yes Guidewire: Stenosis Post-Procedure (%): 0 Post-Procedure SHAYNA Flow: 3 Device(s) Deployed: Yes Type of Device(s): Ferguson Xience 2.25 X 18 mm MARLYN. Intraprocedure Events Significant Dissection: No Perforation: No
[2016-06-08 15:27] LABS: CKMB/CK RATIO 11.3 (0-3.0)
[2016-06-08] MEDS: EPTIFIBATIDE INJ 75 MG PREMIXED IV SCH (17:51)
[2016-06-08] MEDS ORDERED: EPTIFIBATIDE INJ 75 MG PREMIXED IV SCH (19:00)
[2016-06-08 22:02] LABS: BENZODIAZEPINE, URINE POS (NEG); COCAINE,URINE NEG (NEG); PHENCYCLIDINE, URINE NEG (NEG)
[2016-06-08 22:27] LABS: CKMB/CK RATIO 8.1 (0-3.0)
[2016-06-09] MEDS: NSS + 20MEQ KCL 1000ML 1,000 ML IV SCH ×3 (01:38→11:43)
[2016-06-09] MEDS: EPTIFIBATIDE INJ 75 MG PREMIXED IV SCH (01:38)
[2016-06-09 04:43] VITALS: BP_SYST 177; BP_SYST 182; BP_DIAS 106; BP_DIAS 107; PULSE 64; TEMP 37.1; O2SAT 95
[2016-06-09] MEDS ORDERED: Integrelin infusion --> STOP ORDER ONE (05:00)
[2016-06-09 06:03] LABS: HEMATOCRIT 31.8 % (42-52); MEAN CELL VOLUME 78.5 fL (80-100); MEAN CORPUSCULAR HEMOGLOBIN 25.9 pg (25-34); MEAN PLATELET VOLUME 9.3 fL (7.4-10.4); PLATELET COUNT 194 K/uL (130-400); RED BLOOD COUNT 4.05 M/uL (4.7-6.1); WHITE BLOOD COUNT 6.94 K/uL (4.8-10.8)
[2016-06-09 06:13] LABS: INR 0.9 (0.9-1.1); PARTIAL THROMBOPLASTIN RATIO 1.2; PROTHROMBIN TIME (PATIENT) 10.1 SECONDS (9.0-12.0)
[2016-06-09 06:32] LABS: BASO % 0.3 %; BASO ABS # 0.02 K/uL (0-0.2); COMPLETE YES; EOS % 3.6 %; IG% 0.1 %; LYMPH % 40.1 %; LYMPH ABS # 2.78 K/uL (1.2-3.4); MONO % 8.2 %; NEUT % 47.7 %
[2016-06-09 06:38] LABS: BUN/CREATININE RATIO 14.4 (10-20); CALCIUM 7.9 mg/dl (8.5-10.1); CREATININE 0.82 mg/dl (0.60-1.40); MAGNESIUM 2.1 mg/dl (1.8-2.4); POTASSIUM 3.4 mmol/L (3.5-5.1)
[2016-06-09] MEDS ORDERED: POTASSIUM CHLORIDE 20 MEQ TABCR PO ONE (07:15)
[2016-06-09 07:31] VITALS: BP 176/109; PULSE 64; TEMP 36.6; O2SAT 93
[2016-06-09] MEDS: ASPIRIN 81 MG ECTAB PO SCH (08:30)
[2016-06-09] MEDS: ATORVASTATIN 40 MG TAB PO SCH (08:30)
[2016-06-09] MEDS: CLOPIDOGREL BISULFATE 75 MG TAB PO SCH (08:30)
[2016-06-09] MEDS ORDERED: HydrALAZINE HCL 20 MG/ML VIAL IV. PRN (08:45)
[2016-06-09] MEDS ORDERED: ASPIRIN 81 MG ECTAB PO SCH (09:00)
[2016-06-09] MEDS ORDERED: LISINOPRIL 5 MG TAB PO SCH (09:00)
--- NOTE | 2016-06-09 09:41 | Hospitalist Progress Note ---
Hospitalist Progress Note Date of Service Jun 09, 2016. (Coco Rose ., PA-C) Subjective Pt evaluation today including: conversation w/ patient, physical exam, chart review, lab review, review of studies, review of inpatient medication list Pain: None PO Intake: Tolerating PO diet Voiding: no voiding problems Patient reports feeling well. He denies any chest pain, tightness or pressure. His shortness of breath and abdominal pain have also resolved. He does complain of a tingling sensation in his legs bilaterally around his knees only. He also complains of swelling in his right arm following the cardiac cath. The patient is eating and urinating without difficult post operatively and is passing gas. He denies any bowel movements. The patient denies fevers, chills , sweats, chest pain, palpitations, claudication, cough, wheezing, shortness of breath, nausea, vomiting, abdominal pain, dysuria, hematuria, urinary retention , paralysis, and weakness. Additional Comments: See HPI for pertinent positives and negatives. All other systems reviewed and negative. (Coco Rose ., PA-C) Objective Vital Signs Date Time Temp Pulse Resp B/P Pulse Ox O2 Delivery O2 Flow Rate FiO2 06/09/16 07:31 36.6 64 18 176/109 93 Room Air 06/09/16 04:43 37.1 64 18 177/107 95 Room Air 182/106 06/09/16 04:00 Room Air 06/08/16 23:59 Room Air 06/08/16 23:39 37.2 65 18 168/99 96 Room Air 06/08/16 20:00 Room Air 06/08/16 19:52 36.9 60 20 162/93 97 06/08/16 17:30 67 18 132/89 96 Room Air 06/08/16 16:30 52 18 165/110 96 Room Air 06/08/16 16:00 Room Air 06/08/16 15:30 36.3 52 18 162/106 96 Room Air 06/08/16 14:30 53 18 148/91 95 Room Air 06/08/16 14:00 58 16 143/93 98 Room Air 06/08/16 13:31 56 18 145/95 96 Room Air 06/08/16 13:12 53 18 135/86 95 Room Air 06/08/16 13:00 Room Air 06/08/16 12:59 60 16 135/86 98 Room Air 06/08/16 12:45 51 18 133/88 98 Room Air 06/08/16 12:30 50 18 152/88 98 Room Air 06/08/16 12:15 52 18 155/94 96 Room Air 06/08/16 12:00 51 18 150/81 95 Room Air 06/08/16 09:23 47 18 134/83 Room Air (Coco Rose ., PA-C) Physical Exam General Appearance: WD/WN, no apparent distress, + obese Eyes: normal inspection, PERRL, EOMI ENT: normal ENT inspection, hearing grossly normal, pharynx normal Neck: supple, no JVD, trachea midline Respiratory/Chest: lungs clear, normal breath sounds, no respiratory distress Cardiovascular: regular rate, rhythm, no gallop, no murmur Abdomen: normal bowel sounds, non tender, soft Extremities: non-tender, normal inspection, + swelling (non-pitting edema RUE) , + pertinent finding (R radial cath site c/d/i) Neurologic/Psychiatric: alert, normal mood/affect, oriented x 3 Skin: normal color, warm/dry, no rash (Coco Rose ., PA-C) Laboratory Results Last 24 Hours Test 06/08/16 10:26 06/08/16 11:12 06/08/16 11:23 06/08/16 14:21 Kaolin Activated Coagulation Time 173 SECONDS 198 SECONDS 281 SECONDS Total Creatine Kinase 873 U/L Creatine Kinase MB 99.0 ng/ml Creatine Kinase MB Ratio 11.3 Troponin I 24.200 ng/ml Test 06/08/16 19:25 06/08/16 20:58 06/09/16 05:38 06/09/16 05:58 Urine Opiates Screen POS Urine Methadone, Qualitative NEG Urine Barbiturates NEG Urine Phencyclidine (PCP) Level NEG Ur Amphetamine/Methamphetamine NEG MDMA (Ecstasy) Screen NEG Urine Benzodiazepines Screen POS Urine Cocaine Metabolite NEG Urine Marijuana (THC) NEG Total Creatine Kinase 1053 U/L Creatine Kinase MB 85.5 ng/ml Creatine Kinase MB Ratio 8.1 Troponin I 26.900 ng/ml 18.100 ng/ml White Blood Count 6.94 K/uL Red Blood Count 4.05 M/uL Hemoglobin 10.5 g/dL Hematocrit 31.8 % Mean Corpuscular Volume 78.5 fL Mean Corpuscular Hemoglobin 25.9 pg Mean Corpuscular Hemoglobin Concent 33.0 g/dl Platelet Count 194 K/uL Mean Platelet Volume 9.3 fL Neutrophils (%) (Auto) 47.7 % Lymphocytes (%) (Auto) 40.1 % Monocytes (%) (Auto) 8.2 % Eosinophils (%) (Auto) 3.6 % Basophils (%) (Auto) 0.3 % Neutrophils # (Auto) 3.31 K/uL Lymphocytes # (Auto) 2.78 K/uL Monocytes # (Auto) 0.57 K/uL Eosinophils # (Auto) 0.25 K/uL Basophils # (Auto) 0.02 K/uL RDW Standard Deviation 45.0 fL RDW Coefficient of Variation 15.6 % Immature Granulocyte % (Auto) 0.1 % Immature Granulocyte # (Auto) 0.01 K/uL Red Blood Cell Morphology Unremarkable Prothrombin Time 10.1 SECONDS Prothromb Time International Ratio 0.9 Activated Partial Thromboplast Time 31.9 SECONDS Partial Thromboplastin Ratio 1.2 Sodium Level 144 mmol/L Potassium Level 3.4 mmol/L Chloride Level 111 mmol/L Carbon Dioxide Level 26 mmol/L Anion Gap 7.0 mmol/L Blood Urea Nitrogen 12 mg/dl Creatinine 0.82 mg/dl Est Creatinine Clear Calc Drug Dose 113.8 ml/min Estimated GFR () 121.2 Estimated GFR (Non- 104.6 BUN/Creatinine Ratio 14.4 Random Glucose 90 mg/dl Calcium Level 7.9 mg/dl Magnesium Level 2.1 mg/dl Ferritin 44.0 ng/ml Test 06/09/16 09:00 (Coco Rose, DORENE-C) Diagnostic Results Cardiac cath: Coronary angiography: 1. Left main coronary artery: The LMCA is large in caliber without angiographic evidence of CAD. 2. Left anterior descending: The LAD is very large in caliber and wraps around the apex. Proximal LAD 30-40%, just proximal to large septal distribution tech. Luminal irregularities in the mid LAD. There is a small caliber D1 and medium caliber D2 without angiographic evidence of CAD. 3. Circumflex: The circumflex is a large caliber vessel. It gives rise to a high OM1. Proximal circumflex 30%. Mid circumflex lawn diffusely diseased segment ranging 50-70% with sequential 70% lesions within this segment. SHAYNA 3 flow. Very large caliber OM1 with proximal 70% followed by sequential 50% stenosis. 4. Ramus intermedius: Large caliber ramus intermedius with proximal 30% stenosis. 5. 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 Dominant RCA. Proximal RCA 30%. Mid to distal RCA 100% occlusion. SHAYNA 0 flow. Left heart catheterization: 1. Left ventriculography was not performed due to echocardiogram performed earlier today. 2. No aortic stenosis. Peak to peak gradient across the aortic valve was 0 mmHg. 3. Mildly elevated LVEDP; 17 mmHg. Aortography: 1. Supravalvular aortography was performed to help locate the right coronary artery origin. There was no aortic regurgitation. No aortic aneurysm. No evidence of ascending aortic dissection. Sedation start time 10:13 a.m. Sedation end time 11:08 a.m. Procedural details: 1. Coronary angiography was performed via the right radial artery without known complication. 2. AR2 6 [place] diagnostic catheter was used to sub selectively engage anomalous right coronary artery. Impression: 1. 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 2. Severe CAD involving the circumflex and very large caliber OM1. Otherwise nonobstructive CAD within the LAD and ramus intermedius. 3. No aortic stenosis or aortic regurgitation. 4. Mildly elevated LVEDP. Plan: 1. Interventional Cardiology, Dr. Gutierres, to attempt PCI of occluded RCA as patient has continued to experience angina, despite nitrate therapy. PCI: [facility] Equipment: 6 Fr ALR1-2 guide catheter, [place] guidewire, Medtronic Sprinter 2 X 15 mm balloon , Ferguson Xience 2.25 X 18 mm MARLYN. PCI protocol: IV heparin and Integrilin to achieve therapeutic ACT. One inflation with Sprinter to distal RCA occlusion to 14 atms for 15 seconds. Stent deployed at 18 atms for 45 sec. Follow up angiography from orthogonal projections with guidewire in place and then withdrawn. Complications: none. Findings: Initial diagnostic RCA angiography revealed total distal occlusion at crux. SHAYNA 0 flow. After guide angiography flow into the distal RCA was extended for an additional few cm. After PTCA to distal RCA SHAYNA 2 flow into PDA. After stent deployment the residual stenosis at the stent site was 0%. Step up and step down prior to and distal to stent respectively. No dissection, thrombus,perforation, or distal embolic event. SHAYNA 3 flow into remainder of the codominant RCA and a small caliber PDA. After the stent there was a residual 30% stenosis. Distal RCA gave rise to a small caliber PDA with minor irregularities Plan: Aspirin,clopidogrel for at least one year. Aspirin indefinitely. Statin, RODRIGUEZ inhibitor. Beta devika currently contraindicated secondary to intrinsic bradycardia. IV Integrilin for 18 hrs. Smoking cessation counseling. (Coco Rose ., NICOLE) Assessment and Plan 50 y/o male inmate at [facility] with no significant past medical history who presented to the ED with chest pain and SOB 5 hours prior to arrival. Pt received 4 baby aspirin and SL nitro in the [facility] with some relief. Pt denies any family history of cardiovascular disease and denies any personal history of HTN, HLD, or cardiovascular events. Pt is a smoker, although he has been cutting back. Initial troponin elevated at 1.290. EKGs show inferior and anterolateral T wave inversions. NSTEMI--stable. S/p MARLYN POD #1 -Admitted to telemetry. No acute events overnight, pt in sinus rhythm with HR in 60s-70s, with PACs and PVCs -Troponin continued to trend upward prior to cath: 1.290 --> 2.43 -Lipid panel WNL. HgbA1c WNL -Cardiology on board. Spoke with Dr. Garcia. If vital signs stable, ok to d /c tomorrow. Start carvedilol 3.125 mg PO BID now that HR has improved, also given HTN. Can titrate as needed. F/u as an outpatient. -Echocardiogram significant for akinesis of inferior base -Pt taken for urgent cardiac cath on 06/[address] Garcia as pt still symptomatic despite nitro -Cardiac cath revealed 100% occlusion of mid to distal RCA. Mid circumflex with 50-70% stenosis. -Successful PCI with Dr. Gutierres, drug eluding stent placed in RCA -Continue ASA and Plavix s/p stent -Continue lisinopril 5 mg PO qd, atorvastatin 80 mg PO qd -Troponin now trending downward, 18.1 on 06/09 -EKG on 06/09 shows 57 bpm, sinus bradycardia. Inferior T wave inversions persist. Elevated BP w/o previous diagnosis of HTN--SBP persists in 170s-180s -Cover with hydralazine 10 mg IV q6h prn SBP >180 -Lisinopril as above Hypokalemia--stable -Potassium 3.4 on arrival -NSS + 20 mEq KCl at 100 cc/hr -Potassium on 06/09 stable at 3.4 -KCl 40 mEq PO x 1 -Check renin and aldosterone Anemia--ongoing. Unknown baseline -Hgb 12.3 on arrival -Iron, TIBC WNL -Ferritin WNL -Fecal occult blood uncollected -Hgb on 06/09 10.5 -Continue to monitor DVT prophylaxis -Enoxaparin 40 mg SC q24h Code Status -Level I, FULL RESUSCITATION STATUS (Coco Rose ., PAEliezerC) Attending Attestation: Pt seen/examined, chart reviewed, care plan d/w DORENE Rose. I agree w/ the contreras components of her documentation. Pt w/o cp, sob, gillespie, nausea, emesis. Reports 1 episode of melena stool 1-2 months ago; had a normal colonoscopy to his recollection in [place] in the past. Tele stable. VSS gen - nad heart - RRR, s1, s2 lungs - CTA b/l abd - soft, NT ext - no edema; right wrist clean, no erythema or hematoma A/P: NSTEMI 2nd to RCA occlusion s/p deployment of MARLYN plavix x 1 year BB, statin, aspirin borderline low Fe Def - start supplementation; needs outpatient GI referral HTN - increase RODRIGUEZ; add nitropaste if needed tonight vitor SALINAS MD (Dayron Salinas MD)
[2016-06-09 11:48] VITALS: BP 179/91; PULSE 92; TEMP 36.5; O2SAT 96
[2016-06-09] MEDS ORDERED: PANTOprazole SOD 40 MG TAB PO ONE (14:30)
[2016-06-09] MEDS ORDERED: CARVEDILOL 3.125 MG TAB PO ONE (14:30)
--- NOTE | 2016-06-09 14:35 | CARDIOLOGY PROGRESS NOTE ---
DATE: 06/09/2016 TIME: 14:03 p.m. SUBJECTIVE: Yesterday, he underwent coronary angiography and was found to have an anomalous right coronary artery with occlusion in the mid to distal segment. He underwent drug-eluting stent placement with a 2.25 x 18-mm Xience drug-eluting stent. His pain resolved following PCI. He has not had any further chest pain. Denies shortness of breath, syncope, near syncope, palpitations or bleeding. Telemetry personally reviewed. His heart rate is no longer bradycardic and actually has been in the normal range and intermittently tachycardic. He had a 4-beat run of ventricular tachycardia. His blood pressure has also become more elevated. OBJECTIVE: VITAL SIGNS: Temperature 36.5 degrees, most recent charted heart rate 92 beats per minute, respiratory rate 18, blood pressure 179/91 mmHg, and oxygen saturation 96% on room air. I's and O's positive 2 liters yesterday. GENERAL: No acute distress. He is alert. NECK: No appreciable JVD. CARDIAC EXAM: No ventricular heave. Regular, normal S1 and S2. No audible murmurs, rubs or gallops. LUNGS: Clear to auscultation bilaterally without wheezes, rales or rhonchi. ABDOMEN: Soft, nontender, and nondistended. Normoactive bowel sounds. EXTREMITIES: Right radial catheterization site is clean, dry and intact without erythema or discharge. 2+ right radial pulse. No cyanosis or pitting edema. PSYCHIATRIC: Affect appears appropriate. MEDICATIONS: Include aspirin 81 mg daily, Plavix 75 mg daily, Lipitor 80 mg daily, hydralazine p.r.n., lisinopril 5 mg daily, Protonix 40 mg daily, and potassium chloride with normal saline. LABORATORY DATA: White blood cell count is 6.9, hemoglobin 10.5, and platelets 194. Sodium 144, potassium 3.4, BUN 12, creatinine 0.82, and magnesium 2.1. Peak troponin was 26.9. Triglycerides 72, total cholesterol 166, LDL 93, and HDL 59. TSH 0.971. ECG this morning, sinus bradycardia at 57 beats per minute. T-wave inversion in the inferior leads. The anterolateral leads have T-wave abnormality, improved compared to prior ECG yesterday when anterolateral T-wave inversions are much more pronounced. Cardiac catheterization performed yesterday on 06/08/2016 demonstrated proximal LAD 30%-40%. Proximal circumflex 30%. Mid circumflex 50%-70% diffusely diseased with sequential 70% lesions within that segment. SHYANA-3 flow. Proximal very large caliber OM1 with proximal 70% followed by 50% stenosis. Anomalous RCA, which appears to originate from the noncoronary cusp. Proximal RCA 30% and mid to distal RCA 100% with SHAYNA 0 flow. ASSESSMENT AND PLAN: 1. Acute RCA non-ST elevation myocardial infarction: His angina completely resolved following PCI. Due to PCI with drug-eluting stent, recommend aspirin 81 mg daily indefinitely. Plavix 75 mg daily for at least 1 year. Continue high intensity statin therapy. We will initiate beta devika. He has residual circumflex and OM1 significant CAD. Would medically manage this and if he develops symptoms, consider PCI. 2. Hypertension: His blood pressure has been elevated today. Carvedilol 3.125 mg twice daily will be initiated. Lisinopril was also initiated. Titrate these medications as appropriate. 3. Dyslipidemia: Now that he has coronary artery disease, recommend high intensity statin therapy. 4. Tobacco abuse: Recommended today once again that he stop smoking. 5. Bradycardia: His bradycardia has resolved following PCI of RCA. 6. Disposition: As long as he has no recurrent angina and his vital signs are acceptable, can be discharged back to [facility] tomorrow. Recommend cardiology followup. Ideally, cardiac rehabilitation also recommended if allowed by the skilled nursing system. I will be away from the hospital tomorrow. Please do not hesitate to call the on-call museum or zoo director for [facility] for any questions or concerns. Plan of care has been discussed with Coco Rose of the primary service.
[2016-06-09] MEDS: ENOXAPARIN 40 MG/0.4 ML SYR SQ SCH (14:41)
[2016-06-09 16:00] VITALS: BP_SYST 175; BP_SYST 180; BP_DIAS 100; BP_DIAS 102; PULSE 69; TEMP 36.8; O2SAT 95
[2016-06-09] MEDS ORDERED: LISINOPRIL 5 MG TAB PO ONE (16:30)
[2016-06-09] MEDS: FERROUS SULFATE 325 MG TAB PO SCH (16:50)
[2016-06-09 19:49] VITALS: BP 165/97; PULSE 69; TEMP 36.9; O2SAT 97
[2016-06-09] MEDS: CARVEDILOL 3.125 MG TAB PO SCH (20:12)
[2016-06-09] MEDS: NITROGLYCERIN OINT 2% 1GM PACKET EXT SCH (20:39)
[2016-06-09 23:35] VITALS: BP 168/100; PULSE 64; TEMP 37; O2SAT 98
[2016-06-10 03:45] VITALS: BP 169/98; PULSE 67; TEMP 36.7; O2SAT 95
[2016-06-10] MEDS: NITROGLYCERIN OINT 2% 1GM PACKET EXT SCH ×2 (03:47→07:41)
[2016-06-10 05:47] LABS: BASO % 0.3 %; BASO ABS # 0.02 K/uL (0-0.2); COMPLETE YES; EOS % 4.2 %; HEMATOCRIT 30.6 % (42-52); LYMPH % 40.5 %; LYMPH ABS # 2.43 K/uL (1.2-3.4); MEAN CELL VOLUME 78.9 fL (80-100); MEAN CORPUSCULAR HEMOGLOBIN 26.3 pg (25-34); MEAN CORPUSCULAR HGB CONC 33.3 g/dl (32-36); MEAN PLATELET VOLUME 9.9 fL (7.4-10.4); MONO % 8.2 %; NEUT % 46.8 %; PLATELET COUNT 198 K/uL (130-400); RED BLOOD COUNT 3.88 M/uL (4.7-6.1)
[2016-06-10 06:06] LABS: PARTIAL THROMBOPLASTIN RATIO 1.3; PROTHROMBIN TIME (PATIENT) 10.4 SECONDS (9.0-12.0)
[2016-06-10 06:12] LABS: BUN/CREATININE RATIO 13.4 (10-20); CALCIUM 8.1 mg/dl (8.5-10.1); CREATININE 0.81 mg/dl (0.60-1.40); MAGNESIUM 2.1 mg/dl (1.8-2.4); POTASSIUM 3.2 mmol/L (3.5-5.1)
[2016-06-10] MEDS: CARVEDILOL 3.125 MG TAB PO SCH (07:42)
[2016-06-10] MEDS: ASPIRIN 81 MG ECTAB PO SCH (07:42)
[2016-06-10] MEDS: CLOPIDOGREL BISULFATE 75 MG TAB PO SCH (07:43)
[2016-06-10] MEDS: ATORVASTATIN 40 MG TAB PO SCH (07:43)
[2016-06-10] MEDS: FERROUS SULFATE 325 MG TAB PO SCH (07:43)
[2016-06-10 08:16] VITALS: BP 134/80; PULSE 58; TEMP 36.8; O2SAT 94
[2016-06-10] MEDS ORDERED: POTASSIUM CHLORIDE 10 MEQ TABCR PO STA (08:28)
[2016-06-10] MEDS ORDERED: SPIRONOLACTONE 25 MG TAB PO SCH (09:00)
[2016-06-10] MEDS ORDERED: LISINOPRIL 10 MG TAB PO SCH (09:00)
[2016-06-10] MEDS ORDERED: PANTOprazole SOD 40 MG TAB PO SCH (09:00)
[2016-06-10 11:11] VITALS: BP 136/75; PULSE 62; TEMP 36.9; O2SAT 95
[2016-06-10] MEDS: ENOXAPARIN 40 MG/0.4 ML SYR SQ SCH (14:47)
[2016-06-10] MEDS ORDERED: ATOR-26 PO (15:38)
[2016-06-10] MEDS ORDERED: PRT40 PO (15:38)
[2016-06-10] MEDS ORDERED: CRG3125 PO (15:38)
[2016-06-10] MEDS ORDERED: SPR25 PO (15:38)
[2016-06-10] MEDS ORDERED: LSN10 PO (15:38)
[2016-06-10] MEDS ORDERED: NTRSLP4 SL (15:38)
[2016-06-10] MEDS ORDERED: PLV75 PO (15:38)
[2016-06-10] MEDS ORDERED: ASPEC81 PO (15:38)
[2016-06-10] MEDS ORDERED: FRRS300 PO (15:38)
--- NOTE | 2016-06-10 15:53 | Discharge Instructions ---
Discharge Instructions Date of Service Jun 10, 2016. Admission Reason for Admission: NSTEMI (heart attack) Discharge Discharge Diagnosis / Problem: Heart attack with placement of stent into the blocked artery Discharge Goals Goal(s): Improve disease control, Learn about illness, Diagnostic testing, Therapeutic intervention Activity Recommendations Activity Limitations: as noted below ACTIVITY RECOMMENDATIONS following heart catheterization: Excess manipulation of the RIGHT wrist should be avoided for the next 24-48 hours. * No lifting over 2 pounds (approximately a 1/2 gallon of milk) with the utilized arm for 24 hours. * No strenuous activity. * Keep the site of the procedure clean. *You may shower at this time but do NOT take a tub bath or submerge the puncture site in water for the next 3 days. *Do not operate any motorized equipment for 3 days. SPECIAL CARE INSTRUCTIONS: The site may be slightly bruised and sore following your procedure. Should any of the following occur, contact the Dr. who performed your procedure. 1. Redness/inflammation, swelling, chills, or fever, or colored drainage at procedure site within 3-7 days after your procedure. 2. Coldness, discoloration, ongoing numbness, severe pain, or swelling. Expect mild tingling of hand and tenderness at the puncture site for up to three days. If this persists beyond three days, or other symptoms develop, notify the Dr. who performed your procedure. BLEEDING: If the procedure site on your wrist begins to bleed, do not panic 1. Place 1 or 2 fingers firmly just slightly above the insertion site to stop the bleeding. You may be able to feel your pulse as you hold pressure. 2. Lift your finger after 5 minutes to see if the bleeding has stopped. 3. Once the bleeding has stopped, gently wipe the wrist area clean with a bandage. * If the bleeding from your wrist does not stop after 10 minutes, or if there is a large amount of bleeding or spurting, call 911 (do not drive yourself to the hospital). SKIN IRRITATION: * You may experience some redness and/or swelling in the area where radiation was administered. If any skin irritation occurs, please contact your family physician. Other restrictions: No heavy exertional activity - no weight lifting, going to the gym, lifting objects over 15 pounds, etc - until you are cleared by the assembler leather goods. You will need to see the assembler leather goods in about 2 weeks after discharge. He will likely release you to go back to regular activities at that time. . Instructions / Follow-Up Instructions / Follow-Up Recommendations & Instructions following your heart catheterization: 1. After Care: * Take your medications exactly as directed. Don't skip doses. * Remember that recovery after a heart attack takes time. Plan to rest for at lease 4-8 weeks while you recover. Then return to normal activity when your doctor says it's okay. * Ask your doctor about joining a heart rehabilitation program. * Tell your doctor if you are feeling depressed. Feelings of sadness are common after a heart attack, but it is important that you speak to someone if you are feeling overwhelmed by these feelings. * If you are having chest pain, call 911 for an ambulance. Do NOT drive yourself to the hospital. * Ask your family members to learn CPR. * Learn to take your own blood pressure and pulse. Keep a record of your results. Ask your doctor when you should seek emergency medical attention. He or she will tell you which blood pressure reading is dangerous. Lifestyle Changes: * Maintain a healthy weight. Get help to lose any extra pounds. * Cut back on salt. * Limit canned, dried, packaged, and fast foods. * Don't add salt to your food. * Season foods with herbs instead of salt when you cook. * Break the smoking habit. Enroll in a stop-smoking program to improve your chances of success. * Limit fatty foods. * Check your lipid levels regularly. (Your doctor can show you how to do this.) * Build up your activity according to your doctor's recommendation. * Try to manage stress. 2. Take ferrous sulfate 325mg twice daily for about 2-3 months. The doctors at [facility] will need to monitor your cbc and iron levels to ensure normalization. 3. You need a referral to a GI specialist for the iron deficiency found. 4. See Dr. Garcia or Dr. Gutierres - [facility] - in 2 weeks. Current Hospital Diet Patient's current hospital diet: AHA Diet (Heart Healthy) Discharge Diet Recommended Diet: AHA Diet (Heart Healthy) Procedures Procedures Performed: Cardiac catheterization with placement of a stent in the blocked artery Pending Studies Studies pending at discharge: yes List of pending studies: Renin and aldosterone levels Laboratory Results Hemoglobin A1c Test 06/08/16 02:51 Range/Units Estimated Average Glucose 123 mg/dl Hemoglobin A1c 5.9 H 4.5-5.6 % Lipid Panel Test 06/08/16 05:13 Range/Units Triglycerides Level 72 0-150 mg/dl Cholesterol Level 166 0-200 mg/dl HDL Cholesterol 59 mg/dl Cholesterol/HDL Ratio 2.8 LDL Cholesterol, Calculated 93 mg/dl Medical Emergencies . Who to Call and When: Medical Emergencies: If at any time you feel your situation is an emergency, please call 911 immediately. Call 911 immediately or go to your nearest Emergency Room if you experience any of the following: Warning Signs and Symptoms of a Heart Attack * Chest pain that is not relieved by medication * Shortness of breath . Non-Emergent Contact Non-Emergency issues call your: Building Services Engineer Call Non-Emergent contact if: temperature is above 100.5, your pain is not controlled, your pain is worsening, your pain is unusual for you, your pain is concerning you, you have any medication questions recurrent or persistent chest pain, difficulty breathing, jaw pain/arm pain, nausea/vomiting, etc . . "Provider Documentation" section prepared by Dayron Salinas. . Supervisor Sawmill Recommendations Supervisor Sawmill Recommendations: AMI Core Measures Reason no ASA as I/P: Treatment provided - N/A Reason no ASA at D/C: Treatment provided - N/A Reason no statin as I/P: Treatment provided - N/A Reason no statin at D/C: Treatment provided - N/A VTE Core Measure Inpt VTE Proph given/why not?: Unfractionated heparin SQ
[2016-06-10 15:54] VITALS: BP 165/93; PULSE 67; TEMP 36.4; O2SAT 97
[2016-06-10 16:11] VITALS: BP 165/93; PULSE 67; TEMP 36.4; O2SAT 97
--- NOTE | 2016-06-10 19:46 | Discharge Summary ---
Discharge Summary Date of Service Jun 10, 2016. Discharge Summary Admission Date: Jun 08, 2016 at 04:47 Discharge Date: Jun 10, 2016 Discharge Disposition: Home ([facility]) Principal Diagnosis: NSTEMI Problems/Secondary Diagnoses: 1. CAD 2. pre-T2DM 3. hyperlipidemia 4. HTN 5. hypokalemia 6. concern for hyperaldosteronism - renin/aldosterone levels pending 7. mild microcytic anemia likely 2nd to early iron deficiency Procedures: 1. echocardiogram: * 1. Normal left ventricular size and systolic function. EF 55-60%. Akinesis of the inferior base. Moderate to severe concentric left ventricular hypertrophy. No significant diastolic dysfunction. * 2. The left atrium is mildly dilated. * 3. No significant valvular abnormalities visualized. * 4. No prior study available for comparison. 2. cardiac catheterization - Wander Garcia MD / Wayne Gutierres MD Summary of Findings Coronary angiography: 1. Left main coronary artery: The LMCA is large in caliber without angiographic evidence of CAD. 2. Left anterior descending: The LAD is very large in caliber and wraps around the apex. Proximal LAD 30-40%, just proximal to large septal crystalizer tender. Luminal irregularities in the mid LAD. There is a small caliber D1 and medium caliber D2 without angiographic evidence of CAD. 3. Circumflex: The circumflex is a large caliber vessel. It gives rise to a high OM1. Proximal circumflex 30%. Mid circumflex lawn diffusely diseased segment ranging 50-70% with sequential 70% lesions within this segment. SHAYNA 3 flow. Very large caliber OM1 with proximal 70% followed by sequential 50% stenosis. 4. Ramus intermedius: Large caliber ramus intermedius with proximal 30% stenosis. 5. 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 Dominant RCA. Proximal RCA 30%. Mid to distal RCA 100% occlusion. SHAYNA 0 flow. Coronary intervention: PTCA with drug-eluting stent to the RCA. Consultations: cardiology - Wander Parsons MD / Wayne Gutierres MD Medication Reconciliation New Medications: Aspirin (Aspirin EC Low Dose) 81 Mg Ectab 81 MG PO QAM, #90 3 Refills Atorvastatin (Lipitor) 80 Mg Tab 1 TAB PO DAILY for 30 Days, #30 TAB 11 Refills Carvedilol (Carvedilol) 3.125 Mg Tab 3.125 MG PO BID, #60 TAB 11 Refills Clopidogrel Bisulfate (Clopidogrel) 75 Mg Tab 75 MG PO QAM, #30 TAB 11 Refills Ferrous Sulfate (Ferrous Sulfate) 325 Mg Tab 325 MG PO BIDM, #60 TAB 2 Refills take with a glass of orange juice Lisinopril (Zestril) 10 Mg Tab 10 MG PO QAM, #30 TAB 11 Refills Nitroglycerin (Nitrostat) 0.4 Mg/1 Tab Subl 0.4 MG SL [id number] PRN for Chest Pain, #1 BTL 0 Refills Pantoprazole (Pantoprazole Sodium) 40 Mg Tab 40 MG PO QAM, #30 TAB 5 Refills Spironolactone (Spironolactone) 25 Mg Tab 25 MG PO QAM, #30 TAB 5 Refills Referrals At Discharge Follow up Referrals: [facility] Referral - Within 2 Weeks with Wander Garcia MD Discharge Exam Physical Exam: General Appearance: WD/WN, no apparent distress ENT: pharynx normal Neck: no JVD Respiratory/Chest: lungs clear, no respiratory distress, no accessory muscle use Cardiovascular: regular rate, rhythm, no gallop, no murmur, normal peripheral pulses Abdomen / GI: normal bowel sounds, non tender, soft, no organomegaly, no pulsatile mass Extremities: no pedal edema Neurologic/Psychiatric: alert, oriented x 3 Skin: + pertinent finding (right wrist - no hematoma, no cellulitis ) Hospital Course HISTORY OF PRESENT ILLNESS: The patient is a 50-year-old male resident of [facility] who presented to the emergency department with chest pain and shortness of breath that began about 5 hours prior to arrival. He receiveed 4 baby aspirin and nitroglycerin sublingual with some relief at the [facility] and then was brought to the emergency department for assessment. He reported long-standing tobacco use with no prior medical problems, however. Initial EKG in the ER showed inferior wall ST segment depressions with anterolateral ST depressions. Initial troponin was 1.2 consistent with NSTEMI. HOSPITAL COURSE: After admission to the telemetry unit the patient was placed on heparin infusion , aspirin, statin, plavix, and low-dose RODRIGUEZ. He was bradycardic precluding the early use of beta devika. He was seen in consult by cardiology and was taken to the [facility] on 06/08/16. During the left heart cath he was found to have an occluded RCA as the culprit lesion for his NSTEMI. See full cath report above for additional details. He subsequently underwent PTCA with drug-eluting stent deployment in the RCA with synagogue of blood flow through the vessel. Post-cath he had no further ischemic symptoms. He did not have any CHF while hospitalized. For the rest of his stay he remained hemodynamically stable although he had uncontrolled HTN. Peak troponin was 26.9. He completed a 48-hour infusion of heparin. He was ultimately started on low-dose beta devika and his RODRIGUEZ was titrated. Due to his resistant HTN as well as persistent hypokalemia the possibility of hyperaldosteronism was entertained. Thus, renin/aldosterone levels were sent and he was started on aldactone. Renin/aldosterone levels were pending at the time of discharge. At discharge his BPs were under better control with coreg, lisinopril, and aldactone. Lastly, the patient was noted to have mild, microcytic anemia. Iron studies showed a ferritin level in the 40s suggestive of very early iron deficiency. I recommended starting a PPI (he reported a melena stool in the recent past), iron supplementation twice a day, and consultation with gastroenterology after discharge for possible endoscopies. He will need repeat CBC and BMP in 4-5 days for stability of each along with an iron panel in about 4-6 weeks to ensure these levels are improving. Plavix is recommended for AT LEAST ONE YEAR. Follow-up with cardiology in 2 weeks after discharge was advised. Total Time Spent: Greater than 30 minutes This includes examination of the patient, discharge planning, medication reconciliation, and communication with other providers. Discharge Instructions Please refer to the electronic Patient Visit Report (Discharge Instructions) for additional information. Follow-Up 1. see remote medical coder of [facility] within [address] Wander Parsons or Dr. Wayne Gutierres - [facility] - in 2 weeks Additional Copies To Jimy DIMAS; Wander Garcia MD; Wayne Gutierres M.D.
[2016-06-12 15:43] LABS: COD UR NEGATIVE NG/ML (CUTOFF=50); HYDROCOD UR NEGATIVE NG/ML (CUTOFF=50); HYDROMOR UR NEGATIVE NG/ML (CUTOFF=50); HYDROXYETHYLFLURAZEPAM CONF NEGATIVE NG/ML (CUTOFF=50); HYDROXYMIDAZOLAM 608 NG/ML (CUTOFF=50); HYDROXYTRIAZOLAM CONF NEGATIVE NG/ML (CUTOFF=50); MORPHINE UR 521 NG/ML (CUTOFF=50); NORHYDROCODONE CONF UR NEGATIVE NG/ML (CUTOFF=50); OXYMORPH UR NEGATIVE NG/ML (CUTOFF=50); TEMAZEPAM CONF NEGATIVE NG/ML (CUTOFF=50)
== END 2016-06-10 17:54 | disposition home or self-care (01) | DRG 247 ==
LOC: ENRESERVDT → ENRESERVTM → EDBD 02:08 → C.EDB 02:11 → C.2T 04:47
PROVIDERS: ADMIT Hospitalist; ATTEND Internal Medicine
PROC: 4A023N7 Measurement of Cardiac Sampling and Pressure, Left Heart, Percutaneous Approach (ICD-10-PCS; principal; 2016-06-08 09:13)
PROC: B2111ZZ Fluoroscopy of Multiple Coronary Arteries using Low Osmolar Contrast (ICD-10-PCS; principal; 2016-06-08 09:13)
PROC: 027034Z Dilation of Coronary Artery, One Artery with Drug-eluting Intraluminal Device, Percutaneous Approach (ICD-10-PCS; principal; 2016-06-08 09:13)
DX: I21.4 Non-ST elevation (NSTEMI) myocardial infarction (principal); I25.119 Atherosclerotic heart disease of native coronary artery with unspecified angina pectoris; E87.6 Hypokalemia; R00.1 Bradycardia, unspecified; F17.210 Nicotine dependence, cigarettes, uncomplicated; E11.9 Type 2 diabetes mellitus without complications; D50.9 Iron deficiency anemia, unspecified; E78.5 Hyperlipidemia, unspecified; I10 Essential (primary) hypertension; E26.9 Hyperaldosteronism, unspecified